=== PATIENT | male | born 1965 | race Two or more races ===

== ENCOUNTER 2017-11-16 07:10 | Outpatient (CLI) | payer OTHER | END 2017-11-16 07:52 | disposition home or self-care (01) | LOC: LAB 07:10 | DX: N47.8 Other disorders of prepuce (principal); L29.8 Other pruritus; Z01.818 Encounter for other preprocedural examination ==

== ENCOUNTER 2017-11-16 07:14 | Outpatient (CLI) | payer OTHER | END 2017-11-16 07:53 | disposition home or self-care (01) | LOC: RAD 07:14 | DX: N47.8 Other disorders of prepuce (principal); L29.8 Other pruritus; Z01.818 Encounter for other preprocedural examination ==

== ENCOUNTER 2017-11-19 13:04 | Outpatient (CLI) | payer OTHER | END 2017-11-19 13:14 | disposition home or self-care (01) | LOC: LAB 13:04 → EKG 13:04 | DX: N47.8 Other disorders of prepuce (principal); L29.8 Other pruritus; Z01.818 Encounter for other preprocedural examination ==

== ENCOUNTER 2017-11-27 04:59 | Day surgery (SDC) | payer OTHER ==
[~2017-11-27 04:59] MED LIST: ENALAPRIL MALEA10 MG PO; GLIPIZIDE ER2.5 MG PO; METFORMIN HCL500 MG PO
[2017-11-27] MEDS ORDERED: PERCOCET 5-3251 EACH PO (08:19)
[2017-11-27] MEDS ORDERED: KEFLEX500 MG PO (08:19)
== END 2017-11-27 12:30 | disposition home or self-care (01) ==
LOC: CIR.AMB 04:59
DX: N47.6 Balanoposthitis (principal)